=== PATIENT | male | born 1995 | race Hispanic/Latino ===

== ENCOUNTER → 2017-08-14 | Outpatient (CLI) | payer OTHER | END | disposition home or self-care (01) | LOC: RAH 12:55 → EEVIPCON 12:55 | PROVIDERS: ATTEND Physician Assistant | DX: M19.021 Primary osteoarthritis, right elbow (principal); M85.88 Other specified disorders of bone density and structure, other site; W34.00XA Accidental discharge from unspecified firearms or gun, initial encounter; Y93.89 Activity, other specified; Y92.89 Other specified places as the place of occurrence of the external cause; Y99.2 Volunteer activity | CPT/HCPCS: 73080 ==